=== PATIENT | female | born 1960 | race Caucasian/White ===

== ENCOUNTER 2023-06-29 10:58 | Outpatient (RCR) | payer BC, SELFPAY | END 2023-06-29 23:59 | disposition home or self-care (01) | LOC: RPT 10:58 | PROVIDERS: ATTENDING PHYSICIAN Orthopaedic Surgery Orthopaedic Trauma; PRIMARYCARE PHYSICIAN Internal Medicine | DX: S92.062D Displaced intraarticular fracture of left calcaneus, subsequent encounter for fracture with routine healing (principal); S82.841A Displaced bimalleolar fracture of right lower leg, initial encounter for closed fracture; R26.89 Other abnormalities of gait and mobility; Z73.6 Limitation of activities due to disability | CPT/HCPCS: 97110; 97112; 97116; 97140; 97530 ==

== ENCOUNTER 2023-08-10 11:59 | Outpatient (RCR) | payer BC, SELFPAY | END 2023-08-10 23:59 | disposition home or self-care (01) | LOC: RPT 11:59 | PROVIDERS: ATTENDING PHYSICIAN Orthopaedic Surgery Orthopaedic Trauma; PRIMARYCARE PHYSICIAN Internal Medicine | DX: S92.062D Displaced intraarticular fracture of left calcaneus, subsequent encounter for fracture with routine healing (principal); S82.841D Displaced bimalleolar fracture of right lower leg, subsequent encounter for closed fracture with routine healing; Z73.6 Limitation of activities due to disability; R26.89 Other abnormalities of gait and mobility | CPT/HCPCS: 97110; 97112; 97140 ==

== ENCOUNTER 2023-08-31 10:43 | Outpatient (RCR) | payer BC, SELFPAY | END 2023-08-31 23:59 | disposition home or self-care (01) | LOC: RPT 10:43 | PROVIDERS: ATTENDING PHYSICIAN Orthopaedic Surgery Orthopaedic Trauma; PRIMARYCARE PHYSICIAN Internal Medicine | DX: Z47.89 Encounter for other orthopedic aftercare (principal); S92.062D Displaced intraarticular fracture of left calcaneus, subsequent encounter for fracture with routine healing; S82.841D Displaced bimalleolar fracture of right lower leg, subsequent encounter for closed fracture with routine healing; Z73.6 Limitation of activities due to disability; R26.89 Other abnormalities of gait and mobility; M62.81 Muscle weakness (generalized) | CPT/HCPCS: 97110 ==